=== PATIENT | male | born 1950 | race Caucasian/White ===

== ENCOUNTER 2016-03-25 16:55 | Observation (INO) | payer OTHER ==
[2016-03-25] MEDS ORDERED: ASPIRIN 325 MG TAB PO ONE (17:21)
[2016-03-25] MEDS ORDERED: SODIUM CHLORIDE 0.9% 3 ML FLUSH FLUSH PRN (17:21)
[2016-03-25] MEDS ORDERED: NS 1,000 ML IV ONE ×2 (17:25)
[2016-03-25 17:31] LABS: AUTOMATED EOSINOPHIL 4.2 % (0-5); AUTOMATED LYMPH 34.7 % (17-44); AUTOMATED MONOCYTE 8.7 % (3-10); AUTOMATED NEUTROPHIL 51.4 % (45-76); MPV 7.7 fL (7.4-10.4)
--- NOTE | 2016-03-25 17:33 | EDPRACDOC ---
- General Information Chief Complaint: Chest Pain Stated Complaint: CHEST PAIN Time Seen by Provider: 03/25/16 17:23 Information Source: Patient Mode of Arrival: Car Home Medications: Home Medications Allopurinol [Zyloprim] 300 mg PO DAILY 12/29/13 Lisinopril 10 mg PO QHS 12/29/13 Milk Thistle 350 mg PO DAILY 12/29/13 [place]-3/Dha/Epa/Dpa/Fish Oil [[place]-3 1,050 mg Softgel] 1 cap PO BID 12/29/13 Ubidecarenone [Co Q-10] 30 mg PO DAILY 12/29/13 Folic Acid 0.8 mg PO QHS 03/25/16 Gabapentin 200 mg PO QHS 03/25/16 Gabapentin [Neurontin] 100 mg PO QAM 03/25/16 Metformin HCl [Metformin HCl ER] 500 mg PO QHS 03/25/16 Turmeric Root Extract [Turmeric] 500 mg PO QAM 03/25/16 Allergies/Adverse Reactions: Allergies Allergy/AdvReac Type Severity Reaction Status Date / Time No Known Allergies Allergy Verified 03/25/16 17:01 - History of Present Illness Onset: 2 DAYS HPI: PT SENT FROM PCP OFFICE FOR CHEST PAIN. PT STATES HE HAS BEEN HAVING LEFT SIDED CHEST PAIN THAT IS ACHY AND SORE FOR THE LAST 1-2 DAYS WITH INTERMITTENT SHOB WHILE WALKING UP STEPS. NO N/V RADIATING PAIN OR DIAPHORESIS AT THIS TIME. PT STATES HE HAD A STRESS TEST SEVERAL YEARS AGO AT [facility]. Chest Pain Location: Reports: Left Chest Pain Radiation: Reports: None Symptoms Occur: Reports: Gradually Cardiac Risk Factors: Reports: Family History (FATHER WITH AMI AND HEART VALVE PROBLEMS), Hyperlipidemia, Hypertension, Diabetes Cardiac History of: Reports: Stress Test (SEVERAL YEARS AGO) PE Risk Factors: Reports: None Pain Came On: Reports: Suddenly, Gradually (WORSENED) Pain Status: Present Now Pain Description: Reports: Aching, Tightness (SORENESS) Pain Severity: Mild Pain Worsens With: Reports: Exertion (INTERMITTENT) Pain Improves With: Reports: Nothing Associated Signs and Symptoms: Reports: SOB (INTERMITTENTLY WITH EXERTION) ED Past Medical History - History Reviewed Yes Nurses notes reviewed and agree except as marked Travel Outside of US in the Last 3 Months?: No - Patient Medical History Cardiac History: Reports: Hypertension, Stress Test (SEVERAL YEARS AGO), Hypercholesterolemia Respiratory History: Reports: No Significant History Musculoskeletal History: Reports: Arthritis, Gout, Osteoarthritis Systemic History: Reports: Diabetes. Denies: Cancer Surgical History: Reports: Cholecystectomy - Family Medical History Reports: Hypertension (FATHER), Diabetes (MATERNAL AUNT), Cardiac Disorders ( FATHER). Denies: Cancer, Stroke - Social Medical History Smoking Status: Former smoker ETOH: None Substance Abuse: None Lives With: Other Lives In: Home EDM Review of Systems - Review of Systems ROS Negative Except as Marked: Yes All systems reviewed and were negative except as marked Constitutional: No Symptoms Reported. negative: Fever, Chills, Weakness, Fatigue, Loss of Appetite Eyes: No Symptoms Reported. negative: Redness, Blurred Vision, Double Vision, Discharge, Pain, Light Sensitive, Photophobia Ears: No Symptoms Reported. negative: Pain, Hearing Loss, Drainage, Ear Pulling Throat: No Symptoms Reported. negative: Pain, Swelling Nose: No Symptoms Reported. negative: Congestion, Bleeding, Discharge, Injection, Swelling, Deformity, Ecchymosis, Tender, Abrasion, Laceration Mouth: No Symptoms Reported. negative: Pain, Drooling Respiratory: negative: Barky Cough, Brassy Cough, Cough, Hemoptysis, Shortness of Breath (INTERMITTENT WITH MILD EXERTION), Wheezing Cardiovascular: Chest Pain (LEFT SIDE). negative: Cyanosis, Edema, Orthopnea, Palpitations, PND, Syncope, Skin Mottling Gastrointestinal: No Symptoms Reported. negative: Pain, Constipation, Nausea, Vomiting, Diarrhea, Melena, Formula Intolerance Genitourinary: No Symptoms Reported. negative: Dysuria, Hematuria, Frequency, Discharge, Bleeding, Testicular Pain, Neurological: No Symptoms Reported. negative: Headache, Dizziness, Seizure, Numbness, Weakness, Speech Difficulty, Gait Difficulty Musculoskeletal: No Symptoms Reported. negative: Neck, Chestwall, Ribs, Back, Shoulder, Arm, Elbow, Forearm, Wrist, Hand, Pelvis, Hip, Femur, Knee, Leg, Ankle , Foot Integumentary: No Symptoms Reported. negative: Itching, Rash, Bruising, Wound Allergic/Immunologic: No Symptoms Reported. negative: Hives, Itching Hematologic: No Symptoms Reported. negative: Lymphadenopathy, Easy Bruising, Easy Bleeding Endocrine: No Symptoms Reported. negative: Weight Gain, Weight Loss Psychiatric: No Symptoms Reported. negative: Anxiety, Depression, Hallucinations, Insomnia, Suicidal - Physical Exam Constitutional: Alert (Awake), No apparent distress Oriented to: Time, Person, Place Last recorded Vital Signs: Last Vital Signs Temp 98.3 F 03/25/16 16:56 Pulse 59 L 03/25/16 16:56 Resp 18 03/25/16 16:56 BP 158/94 03/25/16 16:56 Pulse Ox 96 03/25/16 16:56 Oxygen Pulse Oxygen Saturation 96 O2 Device Room Air Oxygen Flow Rate Fraction of Inspired Oxygen ( FIO2) - HEENT Head: Normal ( normocephalic) Eye Exam: Normal (PERRL, EOMI, Sclera white) Oropharynx: Normal (Pharynx:Moist without exudate,Gums-no swelling) Tympanic Membrane: Normal ENT EAC: Normal TMJ: Normal Nose: No Symptoms Reported (septum midline) Neck: Normal (FROM, trachea at midline) - Respiratory/Cardiovascular Respiratory: Normal - CTA (BBS clear to auscultation without adventitious sounds ) Cardiovascular: Bradycardia - GI Auscultation: Normal (NABS) Palpation: Normal (Soft,No rebound or guarding, non distended) Tenderness: Non tender Chin's Sign: Negative - Bladder: Normal - Musculoskeletal Back: Normal (Non-Tender) Extremities: Normal (Normal tone, Pulses 2+ No cyanosis or edema, FROM) - Integumentary Skin: Normal, Warm, Dry Lymphatics: Normal (no adenopathy) - Neurologic Memory Impaired: Normal Motor Function: Normal (Normal tone, Pulses 2+ No cyanosis or edema, FROM) Cranial Nerve: Normal (CN II-X11 intact sensation, strength 5/5) Cerebellar: Normal Mood Description: Normal Perception: Normal ED Chest Pain Exam - Respiratory/Cardiovascular Respiratory: Normal - CTA Cardiovascular/Chest: Bradycardia Radial Pulse: Normal Femoral Pulse: Normal Pedal Pulse: Normal Carotid Arteries: Normal Chest Palpation: Normal - Differential Diagnosis Angina, Esophageal reflux/spasm, Gastritis, Myocardial infarction, Pneumonia - Action Patient received Aspirin within last 24 hours?: No ASA given in the ED: Yes Patient received Beta Parviz within last 24hrs: No - Results 03/25/16 17:21 03/26/16 05:10 - EKG EKG #1 EKG Time: 17:00 -: Yes EKG interpreted by me Rate: bpm: 59 [place]: Normal Rhythm: SB Block: None Hypertrophy: None ST: Normal - Departure Disposition: Admit IP To This Hospital Condition: Improved Final Diagnosis: Chest pain Education/Counseling Given To: Patient Education/Counseling Given Regarding: Diagnosis, Treatment, Prognosis, Follow Up Decision to Admit Time: 21:20 Decision to admit date: 04/03/16 Decision to admit: from ED - Physician Consulted Hospitalist Time Called: 21:20 Provider Called: Chester Birch
[2016-03-25 17:42] LABS: BLOOD UREA NITROGEN 16 MG/DL (9-20); CALCIUM 9.3 MG/DL (8.4-10.2); CALCULATED OSMOLALITY 271 MOs/Kg (270-290); CHLORIDE 104 mEq/L (98-107); GLUCOSE 131 MG/DL (70-99); SODIUM LEVEL 139 mEq/L (137-146); TOTAL PROTEIN 7.3 G/DL (6.3-8.2)
[2016-03-25 17:43] LABS: PARTIAL THROMB. TIME 25.9 SEC (22-35); PT-INR 1.1
--- NOTE | 2016-03-25 18:03 | DIRPT ---
CLINICAL DATA: Chest pain. Pain described is left-sided with aching and soreness for the last 1-2 days. EXAM: PORTABLE CHEST 1 VIEW COMPARISON: 01/02/2014 FINDINGS: Cardiac silhouette is normal in size and configuration. The aorta is mildly uncoiled. No mediastinal or hilar masses or evidence of adenopathy. Clear lungs. No pleural effusion or pneumothorax. Right anterior chest wall Port-A-Cath extends into the subclavian vein. It has a loops in the subclavian vein. Tip lies in the expected location of the brachiocephalic veins superior vena cava confluence. This is retracted from the prior study. The loop in the catheter is new. Bony thorax is grossly intact. IMPRESSION: 1. No acute cardiopulmonary disease. 2. Catheter of the right Port-A-Cath has mildly retracted forming a loop in the right subclavian vein centrally. Electronically Signed By: Ryan Geller M.D. On: 03/25/2016 18:00
[2016-03-25 18:12] LABS: LEUKOCYTES/URINE NEG (NEGATIVE); NITRITE/URINE NEG (NEGATIVE); URINE OCCULT BLOOD NEG (NEG/TRACE)
[2016-03-25 18:15] LABS: WBC/URINE 0-2 (0-2)
[2016-03-25] MEDS: SODIUM CHLORIDE 0.9% 3 ML FLUSH FLUSH SCH (18:24)
[2016-03-25] MEDS ORDERED: NITROGLYCERINE 0.4 MG TAB SL PRN (21:07)
--- NOTE | 2016-03-25 21:37 | HISTPHYS ---
- Chief Complaint chest wall ache - History of Present Illness 65 yowm sent to ED by his pcp for evaluation of 2 days history of of brief episodes of left sided chest wall ache. Patient reports that symptoms have lasted very short period of time-seconds only, he denies any correlation with physical exertion. Patient reports no nausea no sweating no shortness of breath associated symptoms, he denies any radiation of chest ache. On detailed questioning patient denies any recent chest discomfort with any kind of physical exertion. He stays that he has been exercising doing at least 3 miles of walking on the treadmill with no chest symptoms. - Medical History Cardiac History: Reports: No Significant History, Hypertension, Stress Test ( SEVERAL YEARS AGO), Hypercholesterolemia, Valvular Heart Disease Respiratory History: Reports: No Significant History GI/ History: Reports: No Significant History, Gastroesophageal Reflux Musculoskeletal History: Reports: No Significant History, Arthritis, Gout, Osteoarthritis Systemic History: Reports: No Significant History, Diabetes, Other ( chemochromatosis). Denies: Cancer Neurological History: Reports: No Significant History Psychological History: Reports: No Significant History - Surgical History Reports: No Significant History, Cholecystectomy, Other (port) - Medictions/Allergies Allergies No Known Allergies Allergy (Verified 03/25/16 17:01) Current Medication List: Reviewed Home Medications Allopurinol [Zyloprim] 300 mg PO DAILY 12/29/13 Lisinopril 10 mg PO QHS 12/29/13 Milk Thistle 350 mg PO DAILY 12/29/13 [place]-3/Dha/Epa/Dpa/Fish Oil [[place]-3 1,050 mg Softgel] 1 cap PO BID 12/29/13 Ubidecarenone [Co Q-10] 30 mg PO DAILY 12/29/13 Folic Acid 0.8 mg PO QHS 03/25/16 Gabapentin 200 mg PO QHS 03/25/16 Gabapentin [Neurontin] 100 mg PO QAM 03/25/16 Metformin HCl [Metformin HCl ER] 500 mg PO QHS 03/25/16 Turmeric Root Extract [Turmeric] 500 mg PO QAM 03/25/16 - Family History Reports: No Significant History, Hypertension (FATHER), Diabetes (MATERNAL AUNT) , Cardiac Disorders (FATHER). Denies: Cancer, Stroke - Social History Travel Outside of US in the Last 3 Months?: No Lives: With Family Smoking Status: Former smoker - Review of Systems Constitutional: Fatigue, Weakness Eyes: No Symptoms Reported Ears: No Symptoms Reported Nose: No Symptoms Reported Mouth: No Symptoms Reported Throat/Neck: No Symptoms Reported Respiratory: Dyspnea Cardiovascular: No Symptoms Reported Gastrointestinal: Heartburn Genitourinary: No Symptoms Reported Neurological: No Symptoms Reported Musculoskeletal:: Arthritis Integumentary: No Symptoms Reported Allergic/Immunologic: No Symptoms Reported Hematologic: No Symptoms Reported Endocrine: No Symptoms Reported Psychiatric: No Symptoms Reported - Physical Exam Vital Signs: Initial Vitals Temperature 98.3 F 03/25/16 16:56 Pulse Rate 59 L 03/25/16 16:56 Respiratory Rate 18 03/25/16 16:56 Blood Pressure 158/94 03/25/16 16:56 Pulse Oxygen Saturation 96 03/25/16 16:56 Constitutional: No apparent distress, Alert Oriented to: Time, Person, Place - HEENT Head: Normal Eye: Normal Oropharynx: Normal ENT EAC: Normal TMJ: Normal Nose: No Symptoms Reported Respiratory: Normal - CTA Cardiovascular: Normal - GI Auscultation: Normal Palpation: Normal Tenderness: Non tender Rectal Exam: Deferred - Exam Deferred: Yes - Musculoskeletal Back: Normal Extremities: Normal Spine: limited range of motion - Integumentary Skin: Normal, Warm, Dry Lymphatics: Normal - Neurologic Memory Impaired: Normal Motor Function: Normal Cranial Nerve: Normal Cerebellar: Normal Mood Description: Normal Thought: Coherent Perception: Normal - Focused CV Perfusion Exam Vital Signs: Last Vital Signs Temp 98.1 F 03/25/16 18:37 Pulse 54 L 03/25/16 18:37 Resp 16 03/25/16 18:37 BP 148/89 03/25/16 18:37 Pulse Ox 96 03/25/16 18:37 - Diagnostic Findings Allergies No Known Allergies Allergy (Verified 03/25/16 17:01) Initial Vitals Temperature 98.3 F 03/25/16 16:56 Pulse Rate 59 L 03/25/16 16:56 Respiratory Rate 18 03/25/16 16:56 Blood Pressure 158/94 03/25/16 16:56 Pulse Oxygen Saturation 96 03/25/16 16:56 03/25/16 17:21 03/25/16 17:21 Last Vital Signs Temp 98.1 F 03/25/16 18:37 Pulse 55 L 03/25/16 21:29 Resp 18 03/25/16 21:29 BP 148/87 03/25/16 21:29 Pulse Ox 94 03/25/16 21:29 Abnormal Lab Results 03/25/16 03/25/16 17:21 17:21 RBC 4.66 L MCV 98 H MCH 35.3 H Glucose 131 H Patient Name: RONAL ISSA LOC: ED : 1950 AGE: 65 Order Date:03/25/16 Date of Service: Report # [id number] Ord Physician: Mathew Ferrer Exam # [id number] Emergency Physician: Meliton Donohue DO Exam(s): [id number] RAD/DG CHEST PORTABLE CLINICAL DATA: Chest pain. Pain described is left-sided with aching and soreness for the last 1-2 days. EXAM: PORTABLE CHEST 1 VIEW COMPARISON: 01/02/2014 FINDINGS: Cardiac silhouette is normal in size and configuration. The aorta is mildly uncoiled. No mediastinal or hilar masses or evidence of adenopathy. Clear lungs. No pleural effusion or pneumothorax. Right anterior chest wall Port-A-Cath extends into the subclavian vein. It has a loops in the subclavian vein. Tip lies in the expected location of the brachiocephalic veins superior vena cava confluence. This is retracted from the prior study. The loop in the catheter is new. Bony thorax is grossly intact. IMPRESSION: 1. No acute cardiopulmonary disease. 2. Catheter of the right Port-A-Cath has mildly retracted forming a loop in the right subclavian vein centrally. Electronically Signed By: Ryan Geller M.D. On EKG NSR - Assessment (1) Chest pain R07.9 - CHEST PAIN, UNSPECIFIED Acute Present on Admission: Yes Qualifiers: Chest pain type: unspecified Qualified Code(s): R07.9 - Chest pain, unspecified Symptoms very atypical. Patient be admitted chest Pain Center serial cardiac enzymes EKGs will be obtained. Exercise Cardiolite stress test in the morning. (2) HTN (hypertension) I10 - ESSENTIAL (PRIMARY) HYPERTENSION Chronic Present on Admission: Yes Qualifiers: Hypertension type: essential hypertension Qualified Code(s): I10 - Essential (primary) hypertension Continue home meds . Keep SBP less than 140 (3) Dyslipidemia E78.5 - HYPERLIPIDEMIA, UNSPECIFIED Chronic Present on Admission: Yes Continue statin and fish oil (4) DM2 (diabetes mellitus, type 2) E11.9 - TYPE 2 DIABETES MELLITUS WITHOUT COMPLICATIONS Chronic Present on Admission: Yes Qualifiers: Diabetes mellitus complication status: with neurologic complications Continue ADA diet oral agents and sliding scale regular insulin (5) Gout M10.9 - GOUT, UNSPECIFIED Chronic Present on Admission: Yes Qualifiers: Gout site: unspecified site Gout etiology: unspecified cause Chronicity: unspecified Qualified Code(s): M10.9 - Gout, unspecified Stable on meds with no recent gouty attacks. Case Care Discussed with: Patient, Family, Nursing Staff Total Time: 40 min . Critical Care: No Code: 30949
[2016-03-25] MEDS ORDERED: ENOXAPARIN 40 MG/0.4 ML PFS SQ SCH (22:00)
[2016-03-25] MEDS ORDERED: Pharmacy Order Set Alert SCH (22:00)
[2016-03-25] MEDS: NITROGLYCERINE 2 % OINTMENT PACK TOP SCH (22:53)
[2016-03-25] MEDS ORDERED: Vaccine Screening Complete SCH (23:00)
[2016-03-26 04:55] VITALS: BMI 27.8
[2016-03-26] MEDS ORDERED: PANTOPRAZOLE 40 MG TAB PO SCH (06:00)
[2016-03-26] MEDS: NITROGLYCERINE 2 % OINTMENT PACK TOP SCH ×2 (06:26→10:54)
[2016-03-26] MEDS: SODIUM CHLORIDE 0.9% 3 ML FLUSH FLUSH SCH (06:31)
[2016-03-26] MEDS ORDERED: Aspirin (Orange Enteric Coated) 325 mg tab PO SCH (08:00)
[2016-03-26] MEDS ORDERED: OMEGA-3-ACID ETHYL ESTERS 1000 MG CAP PO SCH (09:00)
[2016-03-26] MEDS ORDERED: DPA PO SCH (09:00)
[2016-03-26] MEDS ORDERED: EPA PO SCH (09:00)
[2016-03-26] MEDS ORDERED: DHA PO SCH (09:00)
[2016-03-26] MEDS ORDERED: GABAPENTIN 100 MG CAP PO SCH ×2 (09:00→21:00)
[2016-03-26] MEDS ORDERED: TURMERIC ROOT EXTRACT 500 MG PO SCH (09:00)
[2016-03-26] MEDS ORDERED: UBIDECARENONE 30 MG PO SCH (09:00)
[2016-03-26] MEDS ORDERED: OMEGA PO SCH (09:00)
[2016-03-26] MEDS ORDERED: [UNRECOGNIZED DRUG - OTHER] PO SCH (09:00)
[2016-03-26] MEDS ORDERED: FISH OIL PO SCH (09:00)
[2016-03-26] MEDS ORDERED: ALLOPURINOL 100 MG TAB PO SCH (09:00)
[2016-03-26] MEDS ORDERED: SESTAMIBI 8 MCI V IV ONE (10:13)
[2016-03-26 11:39] VITALS: BP 138/86; PULSE 59; TEMP 98
[2016-03-26] MEDS ORDERED: FOLIC ACID 1 MG TAB PO SCH (12:00)
--- NOTE | 2016-03-26 13:18 | PCM.DCS92 ---
- Final/Secondary Discharge Diagnosis (1) Chest pain Acute R07.9 - CHEST PAIN, UNSPECIFIED Present on Admission: Yes unspecified I R07.9 - Chest pain, unspecified Comment: Says he felt great exercising on the treadmill. No shortness of breath. Stress test and Cardiolite negative. He did lift weights less weak and pain appears musculoskeletal. (2) Hemochromatosis Acute Present on Admission: Yes hereditary E83.110 - Hereditary hemochromatosis Comment: Stable. Followed by Dr. Figueroa. To follow up with him next week. (3) DM2 (diabetes mellitus, type 2) Chronic E11.9 - TYPE 2 DIABETES MELLITUS WITHOUT COMPLICATIONS Present on Admission: Yes with neurologic complications with mononeuropathy D P D without care home use L C E11.41 - Type 2 diabetes mellitus with diabetic mononeuropathy Comment: Stable (4) Dyslipidemia Chronic E78.5 - HYPERLIPIDEMIA, UNSPECIFIED Present on Admission: Yes Comment: Continue statin and fish oil (5) Gout Chronic M10.9 - GOUT, UNSPECIFIED Present on Admission: Yes unspecified site unspecified cause E L unspecified P M10.9 - Gout , unspecified Comment: Stable on meds with no recent gouty attacks. (6) HTN (hypertension) Chronic I10 - ESSENTIAL (PRIMARY) HYPERTENSION Present on Admission: Yes essential hypertension I10 - Essential (primary) hypertension Comment: Continue home meds . Keep SBP less than 140 Discharge Disposition: Home Discharge Condition: Improved Cognitive Discharge Status: Unimpaired Fuctional Discharge Status: Independent Physician Follow up/Referrals: Shon Fulton MD [Primary Care Provider] - 1-2 weeks Home Medications / New Prescriptions: Continue Lisinopril 10 mg PO QHS Allopurinol [Zyloprim] 300 mg PO DAILY Ubidecarenone [Co Q-10] 30 mg PO DAILY [place]-3/Dha/Epa/Dpa/Fish Oil [[place]-3 1,050 mg Softgel] 1 cap PO BID Milk Thistle 350 mg PO DAILY Folic Acid 0.8 mg PO QHS Metformin HCl [Metformin HCl ER] 500 mg PO QHS Gabapentin [Neurontin] 100 mg PO QAM Gabapentin 200 mg PO QHS Turmeric Root Extract [Turmeric] 500 mg PO QAM Discharge Home Medication List Allopurinol [Zyloprim] 300 mg PO DAILY 12/29/13 [History Confirmed 03/25/16 Last Taken 03/25/16] Lisinopril 10 mg PO QHS 12/29/13 [History Confirmed 03/25/16 Last Taken 03/24/16 ] Milk Thistle 350 mg PO DAILY 12/29/13 [History Confirmed 03/25/16 Last Taken ] [place]-3/Dha/Epa/Dpa/Fish Oil [[place]-3 1,050 mg Softgel] 1 cap PO BID 12/29/13 [ History Confirmed 03/25/16 Last Taken 03/25/16] Ubidecarenone [Co Q-10] 30 mg PO DAILY 12/29/13 [History Confirmed 03/25/16 Last Taken 03/25/16] Folic Acid 0.8 mg PO QHS 03/25/16 [History Confirmed 03/25/16 Last Taken ] Gabapentin 200 mg PO QHS 03/25/16 [History Confirmed 03/25/16 Last Taken ] Gabapentin [Neurontin] 100 mg PO QAM 03/25/16 [History Confirmed 03/25/16 Last Taken 03/25/16] Metformin HCl [Metformin HCl ER] 500 mg PO QHS 03/25/16 [History Confirmed 03/25 Last Taken 03/24/16] Turmeric Root Extract [Turmeric] 500 mg PO QAM 03/25/16 [History Confirmed 03/25 Last Taken 03/25/16] O2 Device: Room Air Diet at Discharge: As Tolerated Activity: No Restrictions Call Office For: Worsening Symptoms - DC Summary Notes Hospital Course Note:: Discharge summary on patient named RONAL ISSA admitted to [facility] on 03/25/16 by Chester Birch MD. Date of discharge is []. Total Time: 45 minutes - Physical Exam Vital Signs: Last Vital Signs Temp 98.0 F 03/26/16 11:38 Pulse 59 L 03/26/16 11:38 Resp 18 03/26/16 11:38 BP 138/86 03/26/16 11:38 Pulse Ox 94 03/26/16 11:38 Oxygen Pulse Oxygen Saturation 94 O2 Device Room Air Oxygen Flow Rate Fraction of Inspired Oxygen ( FIO2) Constitutional: No apparent distress, Alert, Well nourished, Well appearing Oriented to: Time, Person, Place - HEENT Head: Normal Eye: Normal Oropharynx: Normal ENT EAC: Normal TMJ: Normal Nose: No Symptoms Reported - Respiratory/Cardiovascular Respiratory: Normal - CTA Cardiovascular: Normal - GI Auscultation: Normal Palpation: Normal Tenderness: Non tender Rectal Exam: Deferred - Musculoskeletal Back: Normal Extremities: Normal - Integumentary Skin: Normal, Warm, Dry Lymphatics: Normal - Neurologic Memory Impaired: Normal Motor Function: Normal Cranial Nerve: Normal Cerebellar: Normal Mood Description: Normal Thought: Coherent Perception: Normal
--- NOTE | 2016-03-26 15:01 | DIRPT ---
CLINICAL DATA: Chest pain EXAM: NUCLEAR MEDICINE CARDIOLITE Frandy protocol RESTING/STRESS TECHNIQUE: Cardiolite cardiac stress test Frandy protocol RADIOPHARMACEUTICALS: 8 and 25 millicuries TC 99 M Cardiolite COMPARISON: None. FINDINGS: A Cardiolite stress test Frandy protocol was performed. The stress portion of the test was supervised by Dr. Webster. I reviewed the images with him. There is no evidence of ischemia or significant scar. Normal wall motion and contractility. Left ventricle ejection fraction is 62%. Inferior wall diaphragmatic attenuation is noted. IMPRESSION: There is no evidence of ischemia or significant scar. Normal wall motion and contractility. Left ventricle ejection fraction is 62%. Inferior wall diaphragmatic attenuation is noted. Electronically Signed By: Ronni Lopez M.D. On: 03/26/2016 14:58
--- NOTE | 2016-03-26 15:51 | CAPUEKG ---
[place], [place] Test Date: 2016-03-26 Pat Name: RONAL ISSA Department: Room: 445 Gender: Male Product [employer]: ROLAN : Requested By: Order Number: Reading MD: Sagar Webster MD Measurements Intervals [place] Rate: 51 P: 48 NV: 172 QRS: -16 QRSD: 86 T: 53 QT: 472 QTc: 435 Interpretive Statements Sinus bradycardia Otherwise normal ECG Electronically Signed On 03-26-16 15:50:52 EST by Sagar Webster MD [id number] [id number]
--- NOTE | 2016-03-26 17:08 | PCM.STRESS ---
This is a stress exercise treadmill Cardiolite test. The baseline heart rate and blood pressure, 59 beats per minute 176/96. The baseline EKG shows sinus rhythm is normal. The peak heart rate and blood pressure, 150 beats per minute and 211/104. The patient was stressed by the Frandy protocol 0 minutes 30 seconds stage IV achieving 96% of the maximum predicted heart rate of 150 beats per minute and 10.8 Mets. The stress EKG response is normal, negative for ischemia. The blood pressure response is normal. The rhythm is sinus, occasional PVCs are seen more frequent during recovery. Exercise tolerance is good, normal Symptoms present include fatigue, there is no chest pain. The radiologist will generate the Cardiolite report.
[2016-03-26] MEDS ORDERED: FOLIC ACID 0.8 MG PO SCH (21:00)
[2016-03-26] MEDS ORDERED: MetFORMIN, EXT REL 500 MG TAB PO SCH (21:00)
[2016-03-26] MEDS ORDERED: LISINOPRIL 10 MG TAB PO SCH (21:00)
[2016-03-26] MEDS ORDERED: ATORVASTATIN 40 MG TAB PO SCH (21:00)
== END 2016-03-26 14:38 | disposition home or self-care (01) ==
LOC: ED 16:55 → PCU 21:07
PROVIDERS: ADMIT Internal Medicine; ATTEND Hospitalist
DX: R07.89 Other chest pain (principal); E83.110 Hereditary hemochromatosis; E11.41 Type 2 diabetes mellitus with diabetic mononeuropathy; E78.5 Hyperlipidemia, unspecified; M10.9 Gout, unspecified; I10 Essential (primary) hypertension; Z79.899 Other long term (current) drug therapy
CPT/HCPCS: 36415; 71010; 78452; 80053; 80061; 81001; 82947; 83880; 84484; 85025; 85610; 85730; 93005; 93017; 96360; 96361; 96372; 99285; A9500; G0378; J1650; J3490